=== PATIENT | female | born 1985 | race African-American/Black ===

== ENCOUNTER 2021-01-13 19:56 | Emergency (ER) | payer OTHER ==
[2021-01-13] MEDS ORDERED: MORPHINE 4 MG/ML SYR ONE (20:31)
[2021-01-13] MEDS ORDERED: ONDANSETRON 4 MG/2 ML VIAL ONE (20:31)
[2021-01-13] MEDS ORDERED: PROMETHAZINE INJ 25 MG/ML AMP ONE (21:07)
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
[2021-01-13] MEDS ORDERED: MEPERIDINE HCL 25 MG/ML SYR ONE (22:33)
[2021-01-13] MEDS ORDERED: NA CHLORIDE 0.9% 500 ML ONE (22:33)
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
[2021-01-14 01:00] VITALS: O2SAT 100
[2021-01-14 01:02] VITALS: BP 100/62
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
== END 2021-01-14 00:02 | disposition home or self-care (01) ==
LOC: ER 19:56
DX: S39.012A Strain of muscle, fascia and tendon of lower back, initial encounter (principal); S29.012A Strain of muscle and tendon of back wall of thorax, initial encounter; S60.212A Contusion of left wrist, initial encounter; V49.40XA Driver injured in collision with unspecified motor vehicles in traffic accident, initial encounter
CPT/HCPCS: 36415; 84703; 70450; 72125; 71260; 74177; 73110; 73552 ×2; 96375; 96374; 99285; Q9967; J2550; J2175; J7040; J2405; G0390